=== PATIENT | male | born 1965 | race Caucasian/White ===

== ENCOUNTER 2017-04-19 13:36 | Emergency (ER) | payer MEDICARE, OTHER ==
[~2017-04-19] VITALS: Ht 165.1 cm; Wt 65.0 kg
[~2017-04-19 13:36] MED LIST: DILA100C PO; LEVE500 PO; LEVE750T8 PO; TOPI50TA4 PO
[2017-04-19 13:41] VITALS: BP 122/67; PULSE 84; RESP 18; TEMP 97.4; O2SAT 96
[2017-04-19] MEDS ORDERED: SODIUM CHLOR 0.9% 1000 ML INJ 1,000 ML IV SCH (14:00)
[2017-04-19 14:31] VITALS: O2SAT 96
[2017-04-19 14:32] LABS: AUTOMATED NEUTROPHIL # 5.6 TH/MM3 (1.8-7.7); BASOPHIL % 0.3 % (0.0-2.0); EOSINOPHIL # 0.1 TH/MM3 (0-0.4); EOSINOPHIL % 0.7 % (0.0-4.0); HEMATOCRIT 39.1 % (39.0-51.0); HEMOGLOBIN 12.9 GM/DL (13.0-17.0); LYMPH % 16.4 % (9.0-44.0); LYMPHOCYTE # 1.4 TH/MM3 (1.0-4.8); MEAN CELL VOLUME 93.1 FL (80.0-100.0); MEAN CORPUSCULAR HEMOGLOBIN 30.7 PG (27.0-34.0); MEAN PLATELET VOLUME 8.3 FL (7.0-11.0); MONO % 14.2 % (0.0-8.0); MONOCYTE # 1.2 TH/MM3 (0-0.9); NEUT % 68.4 % (16.0-70.0); PLATELET COUNT 177 TH/MM3 (150-450); WHITE BLOOD COUNT 8.3 TH/MM3 (4.0-11.0)
[2017-04-19 14:42] LABS: CHLORIDE 100 MEQ/L (98-107); SODIUM (NA) 137 MEQ/L (136-145)
[2017-04-19 14:45] LABS: ALBUMIN 2.9 GM/DL (3.4-5.0); BICARBONATE 29.5 MEQ/L (21.0-32.0); GLUCOSE,RANDOM 99 MG/DL (74-106); MAGNESIUM 1.9 MG/DL (1.5-2.5)
[2017-04-19 14:46] LABS: BLOOD UREA NITROGEN 11 MG/DL (7-18)
[2017-04-19 14:48] LABS: ALT (GPT) 38 U/L (12-78); AST (GOT) 40 U/L (15-37); GLOMERULAR FILTRATION RATE 70 ML/MIN (>89)
[2017-04-19] MEDS ORDERED: LEVE500 (14:49)
[2017-04-19] MEDS ORDERED: CLON1TAB PO (14:49)
[2017-04-19] MEDS ORDERED: LEVO88TA2 PO (14:49)
[2017-04-19] MEDS ORDERED: SERO100T PO (14:49)
[2017-04-19] MEDS ORDERED: SERO25TA PO (14:49)
[2017-04-19] MEDS ORDERED: DILA100C PO (14:49)
[2017-04-19] MEDS ORDERED: FURO20TA PO (14:49)
[2017-04-19 14:50] LABS: TOTAL BILIRUBIN ADULT 0.3 MG/DL (0.2-1.0); TOTAL PROTEIN 6.7 GM/DL (6.4-8.2)
--- NOTE | 2017-04-19 14:50 | PD ---
HPI Chief Complaint: Abdominal Pain Time Seen by Provider: 13:49 Travel History International Travel<30 days: No Contact w/Intl Traveler<30days: No Traveled to known affect area: No History of Present Illness HPI This is a 52-year-old male who presents for abdominal pain. His manager installation states that over the last 3 days, he has complained of crampy abdominal pain. He has not had a bowel movement in this time. No vomiting. He has had associated nasal congestion and cough. She states that 2 days ago, he had a fever of about 101 but has not had a fever since then. No difficulty breathing , speaking, swallowing. No rash, headache, neck pain or stiffness. Symptoms are mild in severity. Onset gradual. No alleviating or aggravating factors. No prior treatment. PFSH Past Medical History Anxiety: Yes Diminished Hearing: No Kidney Stones: Yes Neurologic: Yes (Autism) Immunizations Current: No Seizures: Yes Tetanus Vaccination: Unknown Influenza Vaccination: No ?: Not Past Surgical History Eye Surgery: Yes (SURGERY FOR CROSSED EYES) Genitourinary Surgery: Yes (MULTIPLE KIDNEY STONE SURGERIES) Social History Alcohol Use: No Tobacco Use: No Substance Use: No Allergies-Medications (Allergen,Severity, Reaction): Coded Allergies: No Known Allergies (Verified Adverse Reaction, Unknown, 04/19/17) Reported Meds & Prescriptions Reported Meds & Active Scripts Active Lactulose Liq (Lactulose) 10 Gm/15 Ml Soln 30 Ml PO BID PRN Reported Furosemide 20 Mg Tab 20 Mg PO DAILY Clonazepam 1 Mg Tab 1 Mg PO TID Dilantin (Phenytoin Extended) 100 Mg Cap 100 Mg PO TID Levothyroxine (Levothyroxine Sodium) 88 Mcg Tab 88 Mcg PO DAILY Seroquel (Quetiapine Fumarate) 100 Mg Tab 100 Mg PO DAILY Seroquel (Quetiapine Fumarate) 25 Mg Tab 37.5 Mg PO DAILY Keppra (Levetiracetam) 500 Mg Tab 1,500 Mg DAILY Review of Systems Except as stated in HPI: all other systems reviewed are Neg Physical Exam Narrative GENERAL: Alert, well nourished, well appearing patient resting on the bed in no acute distress. Vital Signs reviewed SKIN: Focused skin assessment warm/dry. HEAD: Atraumatic. Normocephalic. EYES: Pupils equal and round. No scleral icterus. No injection or drainage. ENT: No nasal bleeding or discharge. Mucous membranes pink and moist. Posterior oropharynx with no erythema, edema, exudate. Uvula is midline NECK: Trachea midline. No JVD. Spontaneous, painless full range of motion with no meningismus CARDIOVASCULAR: Regular rate and rhythm. No murmur appreciated. Extremities warm and well perfused with bounding peripheral pulses RESPIRATORY: No accessory muscle use. Clear to auscultation. Breath sounds equal bilaterally. Breathing easily GASTROINTESTINAL: Abdomen soft, non-tender, nondistended. Normal bowel sounds. No rigid, rebound, guarding MUSCULOSKELETAL: No obvious deformities. No clubbing. No cyanosis. No edema. Compartments are soft NEUROLOGICAL: Awake and alert. No obvious cranial nerve deficits. Motor grossly within normal limits. Sensation intact. Normal gait Data Data Last Documented VS Vital Signs Date Time Temp Pulse Resp B/P (MAP) Pulse Ox O2 Delivery O2 Flow Rate FiO2 04/19/17 15:26 86 120/64 (82) 96 04/19/17 13:41 97.4 18 Orders Orders Complete Blood Count With Diff (04/19/17 14:00) Comprehensive Metabolic Panel (04/19/17 14:00) Lactic Acid Sepsis Protocol (04/19/17 14:00) Magnesium (Mg) (04/19/17 14:00) Lipase (04/19/17 14:00) Urinalysis - C+S If Indicated (04/19/17 14:00) Influenzae A/B Antigen (04/19/17 14:00) Blood Culture (04/19/17 14:00) Chest, Pa & Lat (04/19/17 14:00) Ecg Monitoring (04/19/17 14:00) Iv Access Insert/Monitor (04/19/17 14:00) Oximetry (04/19/17 14:00) Ct Abd/Pel W Iv Contrast(Rout) (04/19/17 14:00) Thyroid Stimulating Hormone (04/19/17 14:00) Sodium Chlor 0.9% 1000 Ml Inj (Ns 1000 M (04/19/17 14:00) Iohexol 350 Inj (Omnipaque 350 Inj) (04/19/17 15:11) Potassium Chloride Eff (K-Lyte Cl Eff) (04/19/17 15:30) Ed Discharge Order (04/19/17 17:15) Labs Laboratory Tests Test 04/19/17 14:23 04/19/17 16:47 White Blood Count 8.3 TH/MM3 Red Blood Count 4.20 MIL/MM3 Hemoglobin 12.9 GM/DL Hematocrit 39.1 % Mean Corpuscular Volume 93.1 FL Mean Corpuscular Hemoglobin 30.7 PG Mean Corpuscular Hemoglobin Concent 33.0 % Red Cell Distribution Width 13.0 % Platelet Count 177 TH/MM3 Mean Platelet Volume 8.3 FL Neutrophils (%) (Auto) 68.4 % Lymphocytes (%) (Auto) 16.4 % Monocytes (%) (Auto) 14.2 % Eosinophils (%) (Auto) 0.7 % Basophils (%) (Auto) 0.3 % Neutrophils # (Auto) 5.6 TH/MM3 Lymphocytes # (Auto) 1.4 TH/MM3 Monocytes # (Auto) 1.2 TH/MM3 Eosinophils # (Auto) 0.1 TH/MM3 Basophils # (Auto) 0.0 TH/MM3 CBC Comment DIFF FINAL Differential Comment Blood Urea Nitrogen 11 MG/DL Creatinine 1.10 MG/DL Random Glucose 99 MG/DL Total Protein 6.7 GM/DL Albumin 2.9 GM/DL Calcium Level 8.0 MG/DL Magnesium Level 1.9 MG/DL Alkaline Phosphatase 78 U/L Aspartate Amino Transf (AST/SGOT) 40 U/L Alanine Aminotransferase (ALT/SGPT) 38 U/L Total Bilirubin 0.3 MG/DL Sodium Level 137 MEQ/L Potassium Level 3.2 MEQ/L Chloride Level 100 MEQ/L Carbon Dioxide Level 29.5 MEQ/L Anion Gap 8 MEQ/L Estimat Glomerular Filtration Rate 70 ML/MIN Lactic Acid Level 1.5 mmol/L Lipase 376 U/L Thyroid Stimulating Hormone 3rd Gen 0.947 uIU/ML Urine Collection Type CLEAN CATCH Urine Color STRAW Urine Turbidity CLEAR Urine pH 7.5 Urine Specific [place] 1.010 Urine Protein NEG mg/dL Urine Glucose (UA) NEG mg/dL Urine Ketones NEG mg/dL Urine Occult Blood NEG Urine Nitrite NEG Urine Bilirubin NEG Urine Urobilinogen 0.2 MG/DL Urine Leukocyte Esterase NEG Urine Squamous Epithelial Cells 0-1 /hpf Microscopic Urinalysis Comment CULT NOT INDICATED MDM Medical Decision Making Medical Screen Exam Complete: Yes Emergency Medical Condition: Yes Medical Record Reviewed: Yes Interpretation(s) Last 24 hours Impressions Chest X-Ray 04/19/17 1400 Signed Impressions: Service Date/Time: Wednesday, April 19, 2017 15:17 - CONCLUSION: Probable failure. Infiltrate cannot be excluded.. King Dougherty MD FACR Abdomen/Pelvis CT 04/19/17 1400 Signed Impressions: Service Date/Time: Wednesday, April 19, 2017 14:59 - CONCLUSION: Scattered stool without significant evidence for obstruction Small atrophic probably poorly functioning right kidney Mild prominence left ureter without obstruction. Bladder unremarkable. King Dougherty MD FACR Laboratory Tests Test 04/19/17 14:23 04/19/17 16:47 White Blood Count 8.3 TH/MM3 Red Blood Count 4.20 MIL/MM3 Hemoglobin 12.9 GM/DL Hematocrit 39.1 % Mean Corpuscular Volume 93.1 FL Mean Corpuscular Hemoglobin 30.7 PG Mean Corpuscular Hemoglobin Concent 33.0 % Red Cell Distribution Width 13.0 % Platelet Count 177 TH/MM3 Mean Platelet Volume 8.3 FL Neutrophils (%) (Auto) 68.4 % Lymphocytes (%) (Auto) 16.4 % Monocytes (%) (Auto) 14.2 % Eosinophils (%) (Auto) 0.7 % Basophils (%) (Auto) 0.3 % Neutrophils # (Auto) 5.6 TH/MM3 Lymphocytes # (Auto) 1.4 TH/MM3 Monocytes # (Auto) 1.2 TH/MM3 Eosinophils # (Auto) 0.1 TH/MM3 Basophils # (Auto) 0.0 TH/MM3 CBC Comment DIFF FINAL Differential Comment Blood Urea Nitrogen 11 MG/DL Creatinine 1.10 MG/DL Random Glucose 99 MG/DL Total Protein 6.7 GM/DL Albumin 2.9 GM/DL Calcium Level 8.0 MG/DL Magnesium Level 1.9 MG/DL Alkaline Phosphatase 78 U/L Aspartate Amino Transf (AST/SGOT) 40 U/L Alanine Aminotransferase (ALT/SGPT) 38 U/L Total Bilirubin 0.3 MG/DL Sodium Level 137 MEQ/L Potassium Level 3.2 MEQ/L Chloride Level 100 MEQ/L Carbon Dioxide Level 29.5 MEQ/L Anion Gap 8 MEQ/L Estimat Glomerular Filtration Rate 70 ML/MIN Lactic Acid Level 1.5 mmol/L Lipase 376 U/L Thyroid Stimulating Hormone 3rd Gen 0.947 uIU/ML Urine Collection Type CLEAN CATCH Urine Color STRAW Urine Turbidity CLEAR Urine pH 7.5 Urine Specific [place] 1.010 Urine Protein NEG mg/dL Urine Glucose (UA) NEG mg/dL Urine Ketones NEG mg/dL Urine Occult Blood NEG Urine Nitrite NEG Urine Bilirubin NEG Urine Urobilinogen 0.2 MG/DL Urine Leukocyte Esterase NEG Urine Squamous Epithelial Cells 0-1 /hpf Microscopic Urinalysis Comment CULT NOT INDICATED Differential Diagnosis Constipation, volvulus, dehydration, small bowel obstruction, ileus, bronchitis , pneumonia, influenza, UTI Narrative Course IV access was established. Labs, imaging were performed. Patient was given IV fluids. He has not been coughing in the emergency department. No difficulty breathing. No lower extremity edema. No abdominal pain on exam. I reviewed the results of the workup with his family and manager installation. Plan for discharge with lactulose for constipation, supportive care and close outpatient follow-up with primary physician in 2-3 days. Patient understands the importance of close outpatient follow-up. He understands he may require further testing and treatment as an outpatient. He understands strict return indications. He is comfortable with this plan and eager to go home. Diagnosis Primary Impression: Constipation Qualified Codes: K59.00 - Constipation, unspecified Referrals: Primary Care Physician 2 days Patient Instructions: Constipation (ED), General Instructions Additional Instructions: Drink plenty of water. Eat a high-fiber diet with plenty of fresh fruits and vegetables. Okay to use prunes, prune juice or apricots for fiber as well. Take lactulose as directed. Follow-up with primary physician in 2-3 days for recheck. Med/Other Pt SpecificInfo: Prescription(s) given Scripts Lactulose Liq (Lactulose Liq) 10 Gm/15 Ml Soln 30 ML PO BID Y for CONSTIPATION, #180 ML 0 Refills Prov: Priyanka Peters MD 04/19/17 Disposition: 03 DISCHARGE TO SNF Condition: Stable Priyanka Peters MD Apr 19, 2017 14:50
[2017-04-19 14:51] LABS: ALKALINE PHOSPHATASE 78 U/L (45-117)
[2017-04-19] MEDS ORDERED: IOHEXOL 350 MG/ML 10 ML VIAL (for RAD DIAG) IVCONTRAST ONE (15:11)
--- NOTE | 2017-04-19 15:20 | RADRPT ---
EXAM DATE/TIME: 04/19/2017 14:59 [facility] COMPARISON: No previous studies available for comparison. INDICATIONS : No bowel movements, no urine output, abdominal pain. IV CONTRAST: 75 cc Omnipaque 350 (iohexol) IV ORAL CONTRAST: No oral contrast ingested. RADIATION DOSE: 7.32 CTDIvol (mGy) MEDICAL HISTORY : Seizures. Renal calculi. Developmental disabilities. SURGICAL HISTORY : For kidney stones ENCOUNTER: Initial ACUITY: 3 days PAIN SCALE: 10/10 LOCATION: Bilateral diffuse abdomen TECHNIQUE: Volumetric scanning of the abdomen and pelvis was performed. Using automated exposure control and ad justment of the mA and/or kV according to patient size, radiation dose was kept as low as reasonably achievable to obtain optimal diagnostic quality images. DICOM format image data is available electro nically for review and comparison. FINDINGS: Mild interstitial changes in both lung spaces with minimal right middle lobe consolidative changes. Compensated cardiomegaly Liver and gallbladder are unremarkable Spleen and pancreas appear normal Adrenal glands unremarkable Right kidney: Scattered small cysts in right kidney with mild prominence of the right ureter. 1 mm stone upper rocio e nonobstructing. Cortex reasonably well-preserved. Left kidney: Small atrophic left kidney containing multiple stones. Very little cortex remains; doubt significant function There is no retroperitoneal adenopathy There is no free fluid Colon and mesentery unremarkable Pelvis the bladder is mildly prominent. Prostate and seminal vesicles unremarkable There is no obturator adenopathy Abdominal wall intact Review of bone windows reveals only degenerative changes. CONCLUSION: Scattered stool without significant evidence for obstruction Small atrophic probably poorly functioning right kidney Mild prominence left ureter without obstruction. Bladder unremarkable. King Dougherty MD FACR on April 19, 2017 at 15:15 Board Certified Radiologist. This report was verified electronically.
[2017-04-19 15:26] VITALS: BP 120/64; PULSE 86; O2SAT 96
[2017-04-19] MEDS ORDERED: POTASSIUM CHLORIDE 25 MEQ EFFERVESCENT TAB PO ONE (15:30)
--- NOTE | 2017-04-19 15:45 | RADRPT ---
EXAM DATE/TIME: 04/19/2017 15:17 [facility] COMPARISON: No previous studies available for comparison. INDICATIONS : Fever, cough MEDICAL HISTORY : Renal calculi. Developmental disabilites, seizures SURGICAL HISTORY : ENCOUNTER: Initial ACUITY: 2 weeks PAIN SCORE: Non-responsive. LOCATION: Bilateral chest FINDINGS: Moderate bibasilar parenchymal changes with minimal hyperinflation and mild prominence of the cardiac silhouette. Failure is suspected. Inflammatory process cannot be excluded. The portion of the bony skeleton visu alized is unremarkable. CONCLUSION: Probable failure. Infiltrate cannot be excluded.. King Dougherty MD FACR on April 19, 2017 at 15:43 Board Certified Radiologist. This report was verified electronically.
[2017-04-19 16:59] LABS: BILIRUBIN, URINE NEG (NEG); BLOOD, URINE NEG (NEG); GLUCOSE,URINE NEG (NEG); KETONE, URINE NEG (NEG); NITRITE,URINE NEG (NEG); PH, URINE 7.5 (5.0-8.5); URINE LEUKOCYTE ESTERASE NEG (NEG)
[2017-04-19 17:07] LABS: URINE COLOR STRAW (YELLW/STRAW)
[2017-04-19 17:08] LABS: SQUAMOUS EPITHELIAL CELL URINE 0-1 /hpf (0-5)
[2017-04-19] MEDS ORDERED: LACT10SO PO (17:14)
== END 2017-04-19 17:57 ==
LOC: PHED 13:36
DX: K59.00 Constipation, unspecified (principal); F41.9 Anxiety disorder, unspecified; F84.0 Autistic disorder
CPT/HCPCS: 71046; 74177; 80053; 81001; 83605; 83690; 83735; 84443; 85025; 87040; 87804; 99285; J7030; Q9967

== ENCOUNTER 2017-06-28 11:08 | Emergency (ER) | payer MEDICARE, OTHER ==
[~2017-06-28] VITALS: Ht 170.2 cm; Wt 64.0 kg
[~2017-06-28 11:08] MED LIST changes: +CLON1TAB PO; +FURO20TA PO; +LACT10SO PO; +LEVE500; -LEVE500 PO; -LEVE750T8 PO; +LEVO88TA2 PO; +SERO100T PO; +SERO25TA PO; -TOPI50TA4 PO
[2017-06-28 11:20] VITALS: BP 173/94; PULSE 93; RESP 16; TEMP 98.1; O2SAT 99
[2017-06-28] MEDS ORDERED: POTA10CA PO (11:51)
[2017-06-28] MEDS ORDERED: COLA100C5 PO (11:51)
[2017-06-28] MEDS ORDERED: HYDR-3133 PO (11:51)
--- NOTE | 2017-06-28 12:25 | PD ---
HPI Chief Complaint: Edema Time Seen by Provider: 12:03 Travel History International Travel<30 days: No Contact w/Intl Traveler<30days: No Traveled to known affect area: No History of Present Illness HPI Patient presents to the emergency department complaining of swelling bilateral ankles with left more than right. New onset. He is nonverbal secondary to mental retardation and Down syndrome; therefore, Quentin Macdonald his tick sewer is the primary historian. He lives in a [facility] and Quentin states that patient denied any complaints, it was "our idea to bring him here, he was not complaining. He was sitting outside with his legs propped up, watching [place] on television." Denies fever, chills, nausea, vomiting, difficulty breathing, chest pain. They state that he is ambulatory. The tick sewer states that the father advised that the patient has a history of prostate cancer, but the tick sewer was unsure of this diagnosis. Denies any trauma to the affected extremity. PFSH Past Medical History Anxiety: Yes Diminished Hearing: No Kidney Stones: Yes Neurologic: Yes (Autism) Immunizations Current: No Seizures: Yes Tetanus Vaccination: Unknown Influenza Vaccination: Yes Past Surgical History Eye Surgery: Yes (SURGERY FOR CROSSED EYES) Genitourinary Surgery: Yes (MULTIPLE KIDNEY STONE SURGERIES) Social History Alcohol Use: No Tobacco Use: No Substance Use: No Allergies-Medications (Allergen,Severity, Reaction): Coded Allergies: No Known Allergies (Verified Adverse Reaction, Unknown, 06/28/17) Reported Meds & Prescriptions Reported Meds & Active Scripts Active Reported Colace (Docusate Sodium) 100 Mg Capsule 100 Mg PO HS Potassium Chloride ER (Potassium Chloride) 10 Meq Cap 30 Meq PO TID Hydroxyzine HCl 25 Mg Tab 25 Mg PO DAILY Furosemide 20 Mg Tab 20 Mg PO DAILY Clonazepam 1 Mg Tab 1 Mg PO TID Dilantin (Phenytoin Extended) 100 Mg Cap 100 Mg PO TID Levothyroxine (Levothyroxine Sodium) 88 Mcg Tab 88 Mcg PO DAILY Seroquel (Quetiapine Fumarate) 100 Mg Tab 100 Mg PO DAILY Seroquel (Quetiapine Fumarate) 25 Mg Tab 37.5 Mg PO DAILY Keppra (Levetiracetam) 500 Mg Tab 1,500 Mg DAILY Review of Systems Except as stated in HPI: all other systems reviewed are Neg Physical Exam Narrative GENERAL: No acute distress. SKIN: Focused skin assessment warm/dry. HEAD: Atraumatic. Normocephalic. EYES: Pupils equal and round. No scleral icterus. No injection or drainage. ENT: No nasal bleeding or discharge. Mucous membranes pink and moist. NECK: Trachea midline. No JVD. CARDIOVASCULAR: Regular rate and rhythm. No murmur appreciated. RESPIRATORY: No accessory muscle use. Clear to auscultation. Breath sounds equal bilaterally. GASTROINTESTINAL: Abdomen soft, non-tender, nondistended. Hepatic and splenic margins not palpable. MUSCULOSKELETAL: No obvious deformities. No clubbing. No cyanosis. Positive left ankle and pedal edema. No tenderness to palpation bilat LE. Sensation intact bilat LE. No calf pain or tenderness. NEUROLOGICAL: Awake and alert. PSYCHIATRIC: Appropriate mood and affect; insight and judgment normal. Data Data Last Documented VS Vital Signs Date Time Temp Pulse Resp B/P (MAP) Pulse Ox O2 Delivery O2 Flow Rate FiO2 06/28/17 15:11 88 16 99 06/28/17 14:41 Room Air 06/28/17 11:20 98.1 Orders Orders Complete Blood Count With Diff (06/28/17 12:14) Comprehensive Metabolic Panel (06/28/17 12:14) D-Dimer (06/28/17 12:14) B-Type Natriuretic Peptide (06/28/17 12:14) Foot, Complete ([id number]) (06/28/17 12:25) Potassium Chloride (Kcl) (06/28/17 13:15) Us Leg Venous Doppler Bilat (06/28/17 13:15) Ed Discharge Order (06/28/17 15:04) Labs Laboratory Tests Test 06/28/17 12:30 White Blood Count 7.4 TH/MM3 Red Blood Count 4.26 MIL/MM3 Hemoglobin 13.2 GM/DL Hematocrit 39.8 % Mean Corpuscular Volume 93.4 FL Mean Corpuscular Hemoglobin 31.1 PG Mean Corpuscular Hemoglobin Concent 33.3 % Red Cell Distribution Width 14.2 % Platelet Count 265 TH/MM3 Mean Platelet Volume 7.8 FL Neutrophils (%) (Auto) 55.5 % Lymphocytes (%) (Auto) 28.1 % Monocytes (%) (Auto) 12.6 % Eosinophils (%) (Auto) 3.2 % Basophils (%) (Auto) 0.6 % Neutrophils # (Auto) 4.2 TH/MM3 Lymphocytes # (Auto) 2.1 TH/MM3 Monocytes # (Auto) 0.9 TH/MM3 Eosinophils # (Auto) 0.2 TH/MM3 Basophils # (Auto) 0.0 TH/MM3 CBC Comment DIFF FINAL Differential Comment D-Dimer Quantitative (PE/DVT) 3.04 MG/L FEU Blood Urea Nitrogen 22 MG/DL Creatinine 1.30 MG/DL Random Glucose 95 MG/DL Total Protein 7.8 GM/DL Albumin 3.4 GM/DL Calcium Level 8.5 MG/DL Alkaline Phosphatase 129 U/L Aspartate Amino Transf (AST/SGOT) 25 U/L Alanine Aminotransferase (ALT/SGPT) 30 U/L Total Bilirubin 0.2 MG/DL Sodium Level 140 MEQ/L Potassium Level 3.2 MEQ/L Chloride Level 105 MEQ/L Carbon Dioxide Level 30.7 MEQ/L Anion Gap 4 MEQ/L Estimat Glomerular Filtration Rate 58 ML/MIN B-Type Natriuretic Peptide LESS THAN 2 PG/ML MDM Medical Decision Making Medical Screen Exam Complete: Yes Emergency Medical Condition: Yes Interpretation(s) Last Impressions Lower Extremity Ultrasound 06/28/17 1315 Signed Impressions: Service Date/Time: Wednesday, June 28, 2017 13:56 - CONCLUSION: Negative for deep venous thrombosis. King Dougherty MD FACR Foot X-Ray 06/28/17 1225 Signed Impressions: Service Date/Time: Wednesday, June 28, 2017 12:43 - CONCLUSION: No evidence of fracture or retained foreign body. Micaela Lujan MD Labs: Potassium decreased, alk phos and BUN increased L foot: FINDINGS: Three view examination of the left foot demonstrates dorsal soft tissue prominence without dislocation, or fracture. The tarsal bones appear intact. The interphalangeal and metatarsophalangeal joints are intact. The calcaneus is intact. Bony mineralization is normal. CONCLUSION: No evidence of fracture or retained foreign body. Differential Diagnosis Fracture, DVT, nonspecific edema, renal disease, liver disease, CHF Narrative Course Patient presents to the emergency department complaining of bilateral ankle edema but left more than right. On exam he is afebrile and slightly hypertensive at 173/94, remaining vital signs stable. Will check CBC, chemistry , d-dimer, BNP, and x-ray of left lower extremity. 1307: Repleted with 40 mEq KCl p.o. Diagnosis Primary Impression: Edema Qualified Codes: R60.9 - Edema, unspecified Patient Instructions: General Instructions Additional Instructions: 1. Keep legs elevated above level of heart. 2. Followup with doctor in 24-48 hours. 3. Return to ER immediately for fever, chest pain, shortnessof breath, increased swelling, or for any new/worrisome/worsening symptoms. Disposition: 01 DISCHARGE HOME Condition: Stable Tonie Ewing MD June 28, 2017 12:25
[2017-06-28 12:45] LABS: AUTOMATED NEUTROPHIL # 4.2 TH/MM3 (1.8-7.7); BASOPHIL % 0.6 % (0.0-2.0); EOSINOPHIL # 0.2 TH/MM3 (0-0.4); EOSINOPHIL % 3.2 % (0.0-4.0); HEMATOCRIT 39.8 % (39.0-51.0); HEMOGLOBIN 13.2 GM/DL (13.0-17.0); LYMPH % 28.1 % (9.0-44.0); LYMPHOCYTE # 2.1 TH/MM3 (1.0-4.8); MEAN CELL VOLUME 93.4 FL (80.0-100.0); MEAN CORPUSCULAR HEMOGLOBIN 31.1 PG (27.0-34.0); MEAN CORPUSCULAR HGB CONC 33.3 % (32.0-36.0); MEAN PLATELET VOLUME 7.8 FL (7.0-11.0); MONO % 12.6 % (0.0-8.0); MONOCYTE # 0.9 TH/MM3 (0-0.9); NEUT % 55.5 % (16.0-70.0); PLATELET COUNT 265 TH/MM3 (150-450); RED BLOOD COUNT 4.26 MIL/MM3 (4.50-5.90); RED CELL DISTRIBUTION WIDTH 14.2 % (11.6-17.2); WHITE BLOOD COUNT 7.4 TH/MM3 (4.0-11.0)
[2017-06-28 12:53] LABS: CHLORIDE 105 MEQ/L (98-107); SODIUM (NA) 140 MEQ/L (136-145)
[2017-06-28 12:56] LABS: ALBUMIN 3.4 GM/DL (3.4-5.0); BICARBONATE 30.7 MEQ/L (21.0-32.0); CALCIUM 8.5 MG/DL (8.5-10.1); GLUCOSE,RANDOM 95 MG/DL (74-106)
[2017-06-28 12:57] LABS: BLOOD UREA NITROGEN 22 MG/DL (7-18)
--- NOTE | 2017-06-28 12:58 | RADRPT ---
EXAM DATE/TIME: 06/28/2017 12:43 [facility] COMPARISON: No previous studies available for comparison. INDICATIONS : Left foot swelling, no known injury MEDICAL HISTORY : Developmental disabilities, seizures SURGICAL HISTORY : None. ENCOUNTER: Initial ACUITY: 1 day PAIN SCORE: Non-responsive. LOCATION: Left foot FINDINGS: Three view examination of the left foot demonstrates dorsal soft tissue prominence without dislocatio n, or fracture. The tarsal bones appear intact. The interphalangeal and metatarsophalangeal joints are intact. The calcaneus is intact. Bony mineralization is normal. CONCLUSION: No evidence of fracture or retained foreign body. Micaela Lujan MD on June 28, 2017 at 12:55 Board Certified Radiologist. This report was verified electronically.
[2017-06-28 12:59] LABS: ALT (GPT) 30 U/L (12-78); AST (GOT) 25 U/L (15-37); GLOMERULAR FILTRATION RATE 58 ML/MIN (>89)
[2017-06-28 13:01] LABS: TOTAL BILIRUBIN ADULT 0.2 MG/DL (0.2-1.0); TOTAL PROTEIN 7.8 GM/DL (6.4-8.2)
[2017-06-28 13:02] LABS: ALKALINE PHOSPHATASE 129 U/L (45-117)
[2017-06-28] MEDS ORDERED: POTASSIUM CHLORIDE 20 MEQ CONTROLLED RELEASE TAB PO ONE (13:15)
[2017-06-28 14:41] VITALS: BP 156/87; RESP 18; O2SAT 99
--- NOTE | 2017-06-28 15:00 | RADRPT ---
EXAM DATE/TIME: 06/28/2017 13:56 [facility] COMPARISON: No previous studies available for comparison. INDICATIONS : Bilateral leg swelling. MEDICAL HISTORY : Autism. Seizures. Kidney stones. Anxiety. SURGICAL HISTORY : Kidney stone surgery. ENCOUNTER: Initial ACUITY: 1 day PAIN SCORE: 0/10 LOCATION: Bilateral leg. TECHNIQUE: Venous ultrasound of the left and right leg was performed from the inguinal ligament to the proximal calf. Real-time, color Doppler and spectral tracing, compression and augmentation techniques were us ed. FINDINGS: RIGHT LEG: There is normal compressibility of the deep venous system from the inguinal region to the proximal ca lf. No echogenic clot is seen in the lumen of the common femoral, femoral, popliteal, and posterior tibial veins. There is a normal response of the venous system to proximal and distal augmentation an d respiration. LEFT LEG: There is normal compressibility of the deep venous system from the inguinal region to the proximal ca lf. No echogenic clot is seen in the lumen of the common femoral, femoral, popliteal, and posterior tibial veins. There is a normal response of the venous system to proximal and distal augmentation an d respiration. CONCLUSION: Negative for deep venous thrombosis. King Dougherty MD FACR on June 28, 2017 at 14:57 Board Certified Radiologist. This report was verified electronically.
== END 2017-06-28 15:13 | disposition home or self-care (01) ==
LOC: PHED 11:08
DX: R60.0 Localized edema (principal); F84.0 Autistic disorder; Q90.9 Down syndrome, unspecified; F41.9 Anxiety disorder, unspecified
CPT/HCPCS: 73630; 80053; 83880; 85025; 85379; 93970; 99284